=== PATIENT | male | born 1995 | race Hispanic/Latino ===

== ENCOUNTER 2019-05-22 20:46 | Emergency (ER) | payer OTHER ==
[~2019-05-22] VITALS: Ht 190.5 cm; Wt 79.9 kg
[2019-05-22 21:23] LABS: APPEARANCE, URINE CLEAR (CLEAR); BACTERIA, URINE AUTO NEGATIVE (NEGATIVE); BILIRUBIN, URINE AUTO NEGATIVE (NEGATIVE); BLOOD, URINE BLOOD 1+ (NEGATIVE); COLOR, URINE STRAW (YELLOW); GLUCOSE, URINE (UA) AUTO NEGATIVE (NEGATIVE); KETONE, URINE AUTO NEGATIVE (NEGATIVE); LEUKOCYTE ESTERASE, URINE AUTO NEGATIVE (NEGATIVE); NITRITE, URINE AUTO NEGATIVE (NEGATIVE); PROTEIN, URINE AUTO NEGATIVE (NEGATIVE); RBC, URINE AUTO 1 /HPF (0-3); SPECIFIC GRAVITY URINE AUTO 1.002 (1.002-1.035); SQUAMOUS EPITHELIAL CELL UR AU 0 /HPF (0-6); UROBILINOGEN, URINE AUTO 0.2 mg/dL (0.0-2.0); WBC, URINE AUTO 4 /HPF (0-3)
[2019-05-22] MEDS ORDERED: cefTRIAXone SOD 250 MG VIAL (J0696) IM ONE (21:45)
[2019-05-22] MEDS ORDERED: AZITHROMYCIN 250 MG TAB PO ONE (21:45)
[2019-05-22] MEDS ORDERED: LIDOCAINE 1% SDV 5 ML VIAL DILUENT ONE (21:45)
[2019-05-22] MEDS ORDERED: PENI500T PO (22:24)
[2019-05-22 22:39] VITALS: BP 136/80
[2019-05-22 22:44] LABS: CHLAMYDIA DNA AMPLIFICATION NEGATIVE (NEGATIVE); GC DNA AMPLIFICATION NEGATIVE (NEGATIVE)
== END 2019-05-22 22:45 | disposition home or self-care (01) ==
LOC: M ED 20:46
DX: J02.0 Streptococcal pharyngitis (principal); N48.5 Ulcer of penis; R30.0 Dysuria; Z86.19 Personal history of other infectious and parasitic diseases; Z79.899 Other long term (current) drug therapy
CPT/HCPCS: 81001; 87491; 87591; 87880; 96372; 99284; J0696

== ENCOUNTER 2019-05-24 19:52 | Emergency (ER) | payer OTHER ==
[~2019-05-24] VITALS: Ht 190.5 cm; Wt 77.3 kg
[~2019-05-24 19:52] MED LIST: PENI500T PO
[2019-05-24 20:22] LABS: APPEARANCE, URINE CLEAR (CLEAR); BACTERIA, URINE AUTO NEGATIVE (NEGATIVE); BILIRUBIN, URINE AUTO NEGATIVE (NEGATIVE); BLOOD, URINE BLOOD 1+ (NEGATIVE); COLOR, URINE YELLOW (YELLOW); GLUCOSE, URINE (UA) AUTO NEGATIVE (NEGATIVE); KETONE, URINE AUTO TRACE mg/dL (NEGATIVE); LEUKOCYTE ESTERASE, URINE AUTO 3+ (NEGATIVE); NITRITE, URINE AUTO NEGATIVE (NEGATIVE); PROTEIN, URINE AUTO NEGATIVE (NEGATIVE); RBC, URINE AUTO 10 /HPF (0-3); SQUAMOUS EPITHELIAL CELL UR AU 0 /HPF (0-6); UROBILINOGEN, URINE AUTO 0.2 mg/dL (0.0-2.0); WBC, URINE AUTO 33 /HPF (0-3)
[2019-05-24] MEDS ORDERED: NITROFURANTOIN (MACROBID) 100 MG CAP PO ONE (22:30)
[2019-05-24] MEDS ORDERED: ACYCLOVIR 200 MG CAPSULE PO ONE (22:30)
[2019-05-24] MEDS ORDERED: ACYC400T PO (22:32)
[2019-05-24] MEDS ORDERED: MACR100C43 PO (22:32)
[2019-05-24 22:43] VITALS: BP 142/82
== END 2019-05-24 22:45 | disposition home or self-care (01) ==
LOC: M ED 19:52
DX: A60.01 Herpesviral infection of penis (principal); N39.0 Urinary tract infection, site not specified

== ENCOUNTER 2019-09-01 20:12 | Emergency (ER) | payer OTHER ==
[~2019-09-01] VITALS: Ht 190.5 cm; Wt 81.9 kg
[~2019-09-01 20:12] MED LIST changes: +ACYC400T PO; +MACR100C43 PO
[2019-09-01 20:13] VITALS: BP 140/88
[2019-09-01] MEDS ORDERED: IBUP200C89 PO (20:23)
[2019-09-01] MEDS ORDERED: VALT500T PO (21:11)
[2019-09-01] MEDS ORDERED: valACYclovir HCL 500 MG TAB PO ONE (21:15)
[2019-09-01 22:27] LABS: CHLAMYDIA DNA AMPLIFICATION NEGATIVE (NEGATIVE); GC DNA AMPLIFICATION NEGATIVE (NEGATIVE)
== END 2019-09-01 21:25 | disposition home or self-care (01) ==
LOC: M ED 20:12
DX: A60.02 Herpesviral infection of other male genital organs (principal)

== ENCOUNTER 2019-09-26 19:31 | Emergency (ER) | payer OTHER ==
[~2019-09-26] VITALS: Ht 190.5 cm; Wt 81.8 kg
[~2019-09-26 19:31] MED LIST changes: +IBUP200C89 PO; +VALT500T PO
[2019-09-26 22:04] LABS: CHLAMYDIA DNA AMPLIFICATION NEGATIVE (NEGATIVE); GC DNA AMPLIFICATION NEGATIVE (NEGATIVE)
[2019-09-26 22:24] VITALS: BP 133/88
== END 2019-09-26 22:25 | disposition home or self-care (01) ==
LOC: M ED 19:31
DX: R30.0 Dysuria (principal); R35.0 Frequency of micturition; F17.218 Nicotine dependence, cigarettes, with other nicotine-induced disorders

== ENCOUNTER 2019-11-10 18:54 | Emergency (ER) | payer OTHER ==
[2019-12-18 11:20] LABS: CHLAMYDIA DNA AMPLIFICATION NEGATIVE (NEGATIVE); GC DNA AMPLIFICATION NEGATIVE (NEGATIVE)
[2019-12-26 02:43] LABS: APPEARANCE, URINE CLEAR (CLEAR); BACTERIA, URINE AUTO 1+ (NEGATIVE); BILIRUBIN, URINE AUTO NEGATIVE (NEGATIVE); BLOOD, URINE BLOOD NEGATIVE (NEGATIVE); COLOR, URINE YELLOW (YELLOW); GLUCOSE, URINE (UA) AUTO NEGATIVE (NEGATIVE); KETONE, URINE AUTO NEGATIVE (NEGATIVE); LEUKOCYTE ESTERASE, URINE AUTO NEGATIVE (NEGATIVE); MUCUS, URINE SMALL (NEGATIVE); NITRITE, URINE AUTO NEGATIVE (NEGATIVE); PROTEIN, URINE AUTO NEGATIVE (NEGATIVE); RBC, URINE AUTO 1 /HPF (0-3); SPECIFIC GRAVITY URINE AUTO 1.027 (1.002-1.035); SQUAMOUS EPITHELIAL CELL UR AU 0 /HPF (0-6); UROBILINOGEN, URINE AUTO 0.2 mg/dL (0.0-2.0); WBC, URINE AUTO 0 /HPF (0-3)
== END 2019-11-10 20:55 | disposition home or self-care (01) ==
LOC: M ED 18:54
DX: N43.3 Hydrocele, unspecified (principal)

== ENCOUNTER 2021-01-06 20:23 | Emergency (ER) | payer OTHER ==
[~2021-01-06] VITALS: Ht 190.5 cm; Wt 86.2 kg
[~2021-01-06 20:23] MED LIST changes: +ACYC1TAB PO; -ACYC400T PO
[2021-01-06] MEDS ORDERED: KETOROLAC 30 MG/ML 1ML VIAL IV ONE (21:35)
[2021-01-06 22:07] LABS: VENOUS BASE EXCESS 0.8 (-2.0-2.0); VENOUS HCO3 26.4 MEQ/L (23.0-27.0); VENOUS PARTIAL PRESSURE CO2 45.4 mmHg (38.0-50.0); VENOUS PARTIAL PRESSURE O2 60.4 mmHg (30.0-50.0); VENOUS PH 7.383 UNITS (7.330-7.430); VENOUS STANDARD HCO3 25.1 MEQ/L; VENOUS TOTAL CO2 27.8 MEQ/L (24.0-28.0)
[2021-01-06 22:11] LABS: BASO % 0.6 % (0.0-1.0); EOS # 0.4 10^3/uL (0.0-0.5); EOS % 7.1 % (0.0-3.0); HEMATOCRIT 44.6 % (42.0-52.0); HEMOGLOBIN 15.9 g/dl (13.5-17.5); LYMPH % 39.3 % (24.0-44.0); MEAN CORPUSCULAR HEMOGLOBIN 31.1 pg (27.0-33.0); MEAN CORPUSCULAR HGB CONC 35.7 g/dl (32.0-36.5); MEAN CORPUSCULAR VOLUME 87.3 fl (80.0-96.0); MONO # 0.4 10^3/uL (0.0-0.8); MONO % 7.1 % (2.0-8.0); NEUTROPHILS # 2.3 10^3/uL (1.5-8.5); NEUTROPHILS % 45.7 % (36.0-66.0); PLATELET COUNT, AUTOMATED 246 10^3/uL (150-450); RED BLOOD COUNT 5.11 10^6/uL (4.30-6.10); WHITE BLOOD COUNT 5.1 10^3/uL (4.0-10.0)
[2021-01-06 22:31] LABS: ERYTHROCYTE SEDIMENTATION RATE 6 mm/hr (0-15)
[2021-01-06 22:42] LABS: BLOOD UREA NITROGEN 13 MG/DL (7-18); CALCIUM LEVEL 8.9 MG/DL (8.5-10.1); CARBON DIOXIDE LEVEL 26 MEQ/L (21-32); CHLORIDE LEVEL 107 MEQ/L (98-107); CK-MB VALUE MASS < 1.0 NG/ML (<3.6); CPK CREATINE PHOSPHOKINASE 150 U/L (39-308); CREATININE FOR GFR 0.92 MG/DL (0.70-1.30); GLOMERULAR FILTRATION RATE > 60.0 (>60); GLUCOSE, FASTING 97 MG/DL (70-100); MB/CK RELATIVE INDEX 0.67 (< OR =4); POTASSIUM SERUM 4.2 MEQ/L (3.5-5.1); SODIUM LEVEL 139 MEQ/L (136-145); TROPONIN I < 0.02 NG/ML (< 0.10)
[2021-01-06 23:15] VITALS: BP 129/75
--- NOTE | 2021-01-06 23:55 | REPVR ---
PROCEDURE INFORMATION: Exam: XR Chest Exam date and time: 01/06/2021 9:45 PM Age: 25 years old Clinical indication: Pain; Other: Unspecifed; Additional info: Chest pain TECHNIQUE: Imaging protocol: XR of the chest. Views: 1 view. COMPARISON: No relevant prior studies available. FINDINGS: Lungs: Unremarkable. No consolidation. Pleural spaces: Unremarkable. No pleural effusion. No pneumothorax. Heart/Mediastinum: Unremarkable. No cardiomegaly. Bones/joints: Unremarkable. IMPRESSION: No acute findings. Electronically signed by: Cali Becerra On 01/06/2021 23:54:21 PM
--- NOTE | 2021-01-07 19:13 | ECGEPIP ---
[facility] - ED Test Date: 2021-01-06 Pat Name: HARRY VIDES Department: Room: - Gender: Male [employer]inator: ED : 1995 Requested By: YSABEL Charles Order Number: [id number] Reading MD: Capo Hernandez Measurements Intervals Willis Rate: 69 P: 64 HI: 150 QRS: 55 QRSD: 82 T: 51 QT: 382 QTc: 409 Interpretive Statements Sinus rhythm with marked sinus arrhythmia Nonspecific ST T wave changes No prior ECG for comparison Electronically Signed on 01-07-2021 19:13:08 EDT by Capo Hernandez
== END 2021-01-06 23:29 | disposition home or self-care (01) ==
LOC: M ED 20:23
DX: R07.9 Chest pain, unspecified (principal)
CPT/HCPCS: 71045; 80048; 82550; 82553; 82803; 84484; 85025; 85652; 86140; 93005; 93041; 94760; 96374; 99284; J1885; U0003